=== PATIENT | male | born 1940 | race Asian ===

== ENCOUNTER 2016-12-16 05:26 | Inpatient (IN) | payer OTHER ==
[~2016-12-16] VITALS: Ht 167.6 cm; Wt 68.4 kg
[~2016-12-16 05:26] MED LIST: AMLO5TAB2 PO; ASPI-515 PO; ATOR40TA78 PO; BENA1TAB10 PO; EPIN0.3P3 IM; HYDR-3240 PO; LINA5TAB PO; METF500T4 PO; METO25TA35 PO; METO50TA82 PO; [UNRECOGNIZED DRUG - REMARK]
[2016-12-16] MEDS ORDERED: HYDROmorphone 1 MG/ML, 1ML ONE (06:13)
[2016-12-16] MEDS ORDERED: ONDANSETRON 2MG/ML, 2ML ONE (06:13)
[2016-12-16] MEDS ORDERED: ONDANSETRON 2MG/ML, 2ML IVPush ONE (06:30)
[2016-12-16] MEDS ORDERED: HYDROmorphone 1 MG/ML, 1ML IVPush PRN (06:30)
[2016-12-16] MEDS ORDERED: DIAZEPAM 5 MG/ML, 2ML IV ONE (06:30)
[2016-12-16 06:45] LABS: HEMATOCRIT 44.6 % (39.2-51.8); HEMOGLOBIN 14.9 g/dL (13.7-18.0); WHITE BLOOD COUNT 8.1 x10^3/uL (3.4-10)
[2016-12-16 06:59] LABS: ASPARTATE AMINO TRANSFERASE 18 U/L (15-37); BLOOD UREA NITROGEN 34 mg/dL (7-18)
[2016-12-16 09:06] LABS: PATH.CAST-FLAG NOT PRESENT; SPERM-FLAG NOT PRESENT; SRC-FLAG NOT PRESENT; XTAL-FLAG NOT PRESENT; YLC-FLAG NOT PRESENT
[2016-12-16] MEDS ORDERED: FENTANYL PF 100 MCG/2ML IV ONE (09:30)
[2016-12-16] MEDS ORDERED: LINA5TAB PO (09:44)
[2016-12-16] MEDS ORDERED: TAMS0.4C2 PO (09:44)
[2016-12-16] MEDS ORDERED: TIZA4CAP PO (09:44)
[2016-12-16] MEDS ORDERED: BENA20TA2 PO (09:44)
[2016-12-16] MEDS ORDERED: POLYETHYLENE GLYCOL 17 GM PACKET PO PRN (11:30)
[2016-12-16] MEDS ORDERED: ENALAPRILAT 1.25 MG/ML, 2ML IVPush PRN (11:30)
[2016-12-16] MEDS ORDERED: ONDANSETRON 2MG/ML, 2ML IVPush PRN (11:30)
[2016-12-16] MEDS ORDERED: LORazepam 2 MG/ML, 1ML IVPush PRN (11:30)
[2016-12-16] MEDS ORDERED: PROMETHAZINE 25 MG/ML, 1ML IM PRN (11:30)
[2016-12-16] MEDS ORDERED: ACETAMINOPHEN 325 MG TABLET PO PRN (11:30)
[2016-12-16] MEDS ORDERED: HYDROmorphone 2 MG/ML, 1ML IVPush PRN (11:30)
[2016-12-16] MEDS ORDERED: DOCUSATE 100 MG CAPSULE PO PRN (11:30)
[2016-12-16] MEDS ORDERED: BISACODYL 10 MG SUPP PR PRN (11:30)
[2016-12-16] MEDS ORDERED: morphine SULFATE 10 MG/ML, 1ML IVPush PRN (11:30)
[2016-12-16] MEDS: SODIUM CHLORIDE 0.9% 1,000 ML IV SCH (13:43)
[2016-12-16] MEDS ORDERED: PANTOPRAZOLE 40 MG IV ONE (13:49)
[2016-12-16] MEDS ORDERED: FENTANYL PF 100 MCG/2ML ONE (13:49)
[2016-12-16] MEDS: PANTOPRAZOLE 40 MG IV IVPush SCH (13:59)
[2016-12-16] MEDS ORDERED: ENOXAPARIN 40 MG/0.4 ML ONE (14:56)
[2016-12-16] MEDS: ENOXAPARIN 40 MG/0.4 ML SQ SCH (15:06)
[2016-12-16 16:53] VITALS: BP 150/89
[2016-12-16] MEDS: OxyconTIN ER 10 MG TAB.ER PO SCH (17:00)
[2016-12-16 18:33] VITALS: BP 119/75
[2016-12-16] MEDS: METOPROLOL TARTRATE 50 MG TABLET PO SCH (20:11)
[2016-12-16] MEDS ORDERED: TAMSULOSIN 0.4 MG CAP.ER.24H PO SCH (21:00)
[2016-12-16] MEDS ORDERED: ATORVASTATIN 40 MG TABLET PO SCH (21:00)
[2016-12-17 01:23] VITALS: BP 113/67
[2016-12-17] MEDS: SODIUM CHLORIDE 0.9% 1,000 ML IV SCH ×2 (02:18→09:45)
[2016-12-17 04:36] LABS: HEMATOCRIT 42.1 % (39.2-51.8); HEMOGLOBIN 13.8 g/dL (13.7-18.0); WHITE BLOOD COUNT 7.2 x10^3/uL (3.4-10)
[2016-12-17 04:48] LABS: BLOOD UREA NITROGEN 30 mg/dL (7-18)
[2016-12-17] MEDS: OxyconTIN ER 10 MG TAB.ER PO SCH ×2 (05:00→17:00)
[2016-12-17 06:56] VITALS: BP 136/70
[2016-12-17] MEDS ORDERED: BENAZEPRIL 20 MG TABLET PO SCH (09:00)
[2016-12-17] MEDS ORDERED: AMLODIPINE 5 MG TABLET PO SCH (09:00)
[2016-12-17] MEDS ORDERED: ASPIRIN 81 MG TABLET EC PO SCH (09:00)
[2016-12-17] MEDS: METOPROLOL TARTRATE 50 MG TABLET PO SCH (09:00)
[2016-12-17] MEDS: PANTOPRAZOLE 40 MG IV IVPush SCH (09:44)
[2016-12-17] MEDS: ENOXAPARIN 40 MG/0.4 ML SQ SCH (09:46)
[2016-12-17] MEDS ORDERED: MIDAZOLAM 1 MG/ML, 5ML ONE (10:57)
[2016-12-17] MEDS ORDERED: NALOXONE 1 MG/ML, 2ML ONE (10:57)
[2016-12-17] MEDS ORDERED: FENTANYL PF 100 MCG/2ML ONE (10:57)
[2016-12-17] MEDS ORDERED: FLUMAZENIL 0.1 MG/1 ML, 5ML ONE (10:58)
[2016-12-17 13:41] VITALS: BP 138/81
[2016-12-17] MEDS ORDERED: INSULIN REGULAR 100 UNITS/ML, 3ML VIAL SQ-INSULIN SCH (16:00)
[2016-12-17] MEDS ORDERED: OXYC10TA47 PO (16:33)
[2016-12-17] MEDS ORDERED: DOCU-131 PO (16:34)
== END 2016-12-17 19:13 | disposition home or self-care (01) | DRG 479 ==
LOC: ED 05:52 → EDIP 09:11 → 3NW 16:37
PROVIDERS: ADMIT Internal Medicine; ATTEND Internal Medicine
PROC: 0QB23ZX Excision of Right Pelvic Bone, Percutaneous Approach, Diagnostic (ICD-10-PCS; principal; 2016-12-17)
DX: C79.51 Secondary malignant neoplasm of bone (principal); E11.51 Type 2 diabetes mellitus with diabetic peripheral angiopathy without gangrene; C61 Malignant neoplasm of prostate; E86.0 Dehydration; I10 Essential (primary) hypertension; I25.10 Atherosclerotic heart disease of native coronary artery without angina pectoris; N40.0 Benign prostatic hyperplasia without lower urinary tract symptoms; Z87.891 Personal history of nicotine dependence; Z95.1 Presence of aortocoronary bypass graft
CPT/HCPCS: 36415; 49180; 71010; 72192; 77012; 80048; 80053; 81001; 82962; 83605; 83735; 84100; 84153; 84443; 85025; 88305; 88333; 96372; 96374; 96375; 99156; 99157; J1170; J1650; J1815; J2250; J2405; J3010; J3360; C9113; J2310; J7030

== ENCOUNTER → 2017-11-17 | Outpatient (CLI) | payer OTHER ==
[~2017-11-17] MED LIST changes: +BENA20TA4 PO; +DOCU-131 PO; -METF500T4 PO; +METF500T5 PO; +OXYC10TA47 PO; +REGADENOSON 0.4 MG/5 ML SYRINGE ONE; +TAMS0.4C2 PO; +TIZA4CAP PO
== END | disposition home or self-care (01) ==
LOC: CFH 06:44
PROVIDERS: ATTEND Internal Medicine Cardiovascular Disease
DX: I35.0 Nonrheumatic aortic (valve) stenosis (principal); I37.1 Nonrheumatic pulmonary valve insufficiency; I35.8 Other nonrheumatic aortic valve disorders; I11.9 Hypertensive heart disease without heart failure; I25.10 Atherosclerotic heart disease of native coronary artery without angina pectoris; E78.5 Hyperlipidemia, unspecified; Z85.46 Personal history of malignant neoplasm of prostate; Z87.891 Personal history of nicotine dependence
CPT/HCPCS: 78452; 93017; 93306; A9502; J2785

== ENCOUNTER → 2018-01-11 | Outpatient (CLI) | payer OTHER ==
[~2018-01-11] MED LIST changes: -AMLO5TAB2 PO; +AMLO5TAB7 PO; +METF500T17 PO; -METF500T5 PO; -REGADENOSON 0.4 MG/5 ML SYRINGE ONE
== END | disposition home or self-care (01) ==
LOC: PETCFH 10:28
PROVIDERS: ATTEND Specialist
DX: C61 Malignant neoplasm of prostate (principal); R53.82 Chronic fatigue, unspecified
CPT/HCPCS: 78306; A9503

== ENCOUNTER → 2018-06-21 | Outpatient (CLI) | payer OTHER ==
[~2018-06-21] MED LIST changes: +AMLO-150 PO; -AMLO5TAB7 PO; -BENA20TA4 PO; +BENA20TA54 PO; +OMNIPAQUE 350 MG/ML, 100ML BOTTLE ONE
== END | disposition home or self-care (01) ==
LOC: PETCFH 09:27
PROVIDERS: ATTEND Specialist
DX: C79.51 Secondary malignant neoplasm of bone (principal); C61 Malignant neoplasm of prostate; M47.816 Spondylosis without myelopathy or radiculopathy, lumbar region; M17.11 Unilateral primary osteoarthritis, right knee; K40.90 Unilateral inguinal hernia, without obstruction or gangrene, not specified as recurrent; K76.0 Fatty (change of) liver, not elsewhere classified; K80.20 Calculus of gallbladder without cholecystitis without obstruction; N28.1 Cyst of kidney, acquired; R59.1 Generalized enlarged lymph nodes
CPT/HCPCS: 71260; 74177; 78306; A9503; Q9967

== ENCOUNTER → 2020-11-25 | Outpatient (CLI) | payer MEDICARE ==
[~2020-11-25] MED LIST changes: -ASPI-515 PO; +ASPI-963 PO; +HYDR-2214 PO; -HYDR-3240 PO; -OMNIPAQUE 350 MG/ML, 100ML BOTTLE ONE
[2020-11-25 12:08] LABS: ALANINE AMINOTRANSFERASE 13 U/L (12-78); ALBUMIN 2.7 g/dL (3.4-5.0); ANION GAP 4 mmol/L (5-15); CALCIUM 7.8 mg/dL (8.5-10.1); CHLORIDE 111 mmol/L (98-107); CREATININE 2.12 mg/dL (0.7-1.3)
[2020-11-25 12:13] LABS: ALKALINE PHOSPHATASE 51 U/L (45-117); BILIRUBIN,TOTAL 0.4 mg/dL (0.2-1.0); TOTAL PROTEIN 6.4 g/dL (6.4-8.2)
== END | disposition home or self-care (01) ==
LOC: LAB 11:31
PROVIDERS: ATTEND Specialist
DX: Z51.11 Encounter for antineoplastic chemotherapy (principal); C79.51 Secondary malignant neoplasm of bone; C61 Malignant neoplasm of prostate; R53.82 Chronic fatigue, unspecified; G89.3 Neoplasm related pain (acute) (chronic); D64.9 Anemia, unspecified; D69.6 Thrombocytopenia, unspecified; Z79.899 Other long term (current) drug therapy
CPT/HCPCS: 36415; 80053; 83735; 84100; 84153; G0103